=== PATIENT | female | born 1945 | race Hispanic/Latino ===

== ENCOUNTER 2018-04-05 09:10 | Emergency (ER) | payer OTHER ==
[2018-04-05 09:46] LABS: Absolute Lymphocytes (CBC) 1.7 K/uL (0.7-4.9); Absolute Monocytes 0.6 K/uL (0.1-1.3); Absolute Neutrophil 3.1 K/uL (1.8-8.0); Basophils % 0.9 % (0-1.3); Eosinophils % 3.3 % (0-4.4); Hematocrit 38.9 % (36.0-45.0); Lymphocytes % 30.7 % (15.3-44.8); MCH 31.7 pg (27.0-35.0); MPV 7.8 fL (7.6-11.3); Monocytes % 9.9 % (3.3-12.3); RBC Red Blood Cell Count 4.23 M/uL (3.86-4.86)
[2018-04-05 10:23] LABS: Potassium 4.2 mmol/L (3.5-5.1)
--- NOTE | 2018-04-05 11:14 | RAD REPORT ---
EXAM DESCRIPTION: Divya Single View04/05/2018 10:34 am CLINICAL HISTORY: Chest pain COMPARISON: 2010 FINDINGS: The lungs appear clear of acute infiltrate. The heart is normal size IMPRESSION: No acute abnormalities displayed
--- NOTE | 2018-04-05 12:13 | EKG ---
Test Date: 2018-04-05 Test Time: 09:20:54 Metaphysician: RAVINDRA MEASUREMENT RESULTS: Intervals: Rate: 63 IN: 166 QRSD: 146 QT: 438 QTc: 448 [place]: P: 61 IN: 166 QRS: -2 T: 89 INTERPRETIVE STATEMENTS: Normal sinus rhythm Left bundle branch block Abnormal ECG No previous ECG available for comparison Electronically Signed On 04-05-18 12:11:43 CDT by Gilles Gupta
--- NOTE | 2018-04-05 12:38 | ER ---
Nurse's Notes [facility] Name: Katelyn Stover Age: 72 yrs Sex: Female : 1945 Arrival Date: 04/05/2018 Time: 09:14 Bed 19 Private MD: Caryl Sanchez Diagnosis: Chest pain, unspecified Presentation: 04/05 09:21 Presenting complaint: Patient states: Left sided chest pain for 5 days with aj intermittent diaphoresis. Transition of care: patient was not received from another setting of care. Onset of symptoms was March 31, 2018. Risk Assessment: Do you want to hurt yourself or someone else? Patient reports no desire to harm self or others. Initial Sepsis Screen: Does the patient meet any 2 criteria? No. Patient's initial sepsis screen is negative. Does the patient have a suspected source of infection? No. Patient's initial sepsis screen is negative. Care prior to arrival: None. 09:21 Method Of Arrival: Wheelchair aj 09:21 Acuity: MICHELLE 3 aj Triage Assessment: :23 General: Appears in no apparent distress. comfortable, Behavior is calm, cooperative, aj appropriate for age. Pain: Complains of pain in anterior aspect of left upper chest and left breast. Neuro: Level of Consciousness is awake, alert, obeys commands, Oriented to person, place, time, situation, Appropriate for age. Cardiovascular: Reports chest pain, diaphoresis, Capillary refill < 3 seconds in bilateral fingers Patient's skin is warm and dry. Respiratory: Airway is patent Respiratory effort is even, unlabored, Respiratory pattern is regular, symmetrical. Derm: Skin is intact, is healthy with good turgor, Skin is pink, warm \T\ dry. normal. Historical: - Allergies: : No Known Allergies; aj - PMHx: 09: Hypertension; Hyperlipidemia; aj - PSHx: :23 Aneurysm repair; aj - Immunization history:: Adult Immunizations up to date. - Social history:: Smoking status: Patient/guardian denies using tobacco. - Ebola Screening: : Patient negative for fever greater than or equal to 101.5 degrees Fahrenheit, and additional compatible Ebola Virus Disease symptoms Patient denies exposure to infectious person Patient denies travel to an Ebola-affected area in the 21 days before illness onset No symptoms or risks identified at this time. - Family history:: not pertinent. - Hospitalizations: : No recent hospitalization is reported. Screenin:32 Abuse screen: Denies threats or abuse. Denies injuries from another. Nutritional ss screening: No deficits noted. Tuberculosis screening: Never had TB. Fall Risk None identified. Assessment: 09:32 General: Appears in no apparent distress. comfortable, Behavior is calm, cooperative, ss Denies fever, feeling ill, fatigue, chills. Pain: Complains of pain in left breast and anterior aspect of left upper chest Pain does not radiate. Pain currently is 3 out of 10 on a pain scale. Quality of pain is described as aching, Pain began 5 days ago, is episodic Aggravated by repositioning. Neuro: Level of Consciousness is awake, alert, obeys commands, Oriented to person, place, time, situation, Enrolled Agent are equal bilaterally. Cardiovascular: Heart tones S1 S2 present Capillary refill < 3 seconds is brisk in bilateral fingers Patient's skin is warm and dry. Pulses are palpable in right radial artery, right dorsalis pedis artery, left radial artery and left dorsalis pedis artery Edema is absent. Rhythm is sinus rhythm. Respiratory: Airway is patent Trachea midline Respiratory effort is even, unlabored, Respiratory pattern is regular, symmetrical, Breath sounds are clear bilaterally. Denies cough, shortness of breath labored breathing, pain with respiration, pain with cough, pain with movement. GI: Patient currently denies diarrhea, nausea, vomiting. : Denies burning with urination, inability to void, urinary frequency. EENT: Nares are clear Oral mucosa is moist. Throat is clear. Derm: Skin is intact, is healthy with good turgor, Skin is dry, Skin is pink, warm \T\ dry. normal. Musculoskeletal: Circulation, motion, and sensation intact. Capillary refill < 3 seconds, is brisk, in bilateral fingers. Range of motion: intact in all extremities, Swelling absent. 10:36 Reassessment: Patient and/or family updated on plan of care and expected duration. Pain mb3 level reassessed. Patient is alert, oriented x 3, equal unlabored respirations, skin warm/dry/pink. Vital Signs: 09:23 BP 161 / 87; Pulse 66; Resp 19; Pulse Ox 99% on R/A; Weight 64.41 kg; Height 5 ft. 1 aj in. (154.94 cm); 09:26 Temp 98.0(O); rb1 10:36 BP 154 / 73; Pulse 56; Resp 18; Pulse Ox 96% on R/A; mb3 12:44 BP 144 / 63; Pulse 58; Resp 17; Pulse Ox 97% on R/A; mb3 09:23 Body Mass Index 26.83 (64.41 kg, 154.94 cm) ED Course: 09:14 Patient arrived in ED. sb2 09:14 Caryl Sanchez MD is Private Physician. sb2 09:22 Vinicius Ramey MD is Attending Physician. rn 09:22 Triage completed. aj 09:23 Arm band placed on left wrist. Patient placed in an exam room, on a stretcher, on secured entrance monitor, on pulse oximetry. EKG completed in triage. Results shown to MD. 09:28 Yamel Plummer, RN is Primary Nurse. 09:28 Inserted saline lock: 20 gauge in right antecubital area, using aseptic technique. ss Blood collected. Patient maintains SpO2 saturation greater than 95% on room air. 09:32 Patient has correct armband on for positive identification. Bed in low position. ss secured entrance monitor on. Pulse ox on. NIBP on. 09:57 EKG done, by motion picture camera lens technician. reviewed by Vinicius Ramey MD. at1 10:35 XRAY Chest (1 view) In Process Unspecified. EDMS 12:06 EKG done, by motion picture camera lens technician. reviewed by Vinicius Ramey MD Repeat EKG. at1 12:37 Gilles Gupta MD is Referral Physician. rn 12:56 No provider procedures requiring assistance completed. IV discontinued, intact, mb3 bleeding controlled, No redness/swelling at site. Pressure dressing applied. Administered Medications: No medications were administered Outcome: 12:37 Discharge ordered by MD. rn 12:56 Discharged to home ambulatory, with family. mb3 12:56 Condition: stable 12:56 Discharge instructions given to patient, family, Instructed on discharge instructions, follow up and referral plans. Demonstrated understanding of instructions, follow-up care. 12:57 Patient left the ED. mb3 Signatures: Dispatcher [employer] EDMS Yaneth Quintero RN RN aj Nieto, Roman, MD MD rn Smirch, Shelby, RN RN ss Yaneth partida, power plant operators supervisor EKG Tat1 Cadence Guevara RN RN rb1 Octavia Cavazos sb2 Jeff Monroe, RN RN mb3
--- NOTE | 2018-04-05 12:38 | EDPHYS ---
Physician Documentation [facility] Name: Katelyn Stover Age: 72 yrs Sex: Female : 1945 Arrival Date: 04/05/2018 Time: 09:14 Bed 19 Private MD: Caryl Sanchez ED Physician Vinicius Ramey HPI: 04/05 10:25 This 72 yrs old Female presents to ER via Wheelchair with complaints of Chest rn Pain > 30 y/o. 10:25 The patient or guardian reports chest pain that is located primarily in the anterior rn chest wall, left. Onset: 5 day(s) ago. The pain. Associated signs and symptoms: Pertinent positives: diaphoresis, Pertinent negatives: dizziness, palpitations, shortness of breath, syncope, vomiting. The chest pain is described as aching. Duration: The patient or guardian reports multiple episodes, that are intermittent. Severity of pain: At its worst the pain was mild in the emergency department the pain has improved. The patient has not experienced similar symptoms in the past. Reports chest pain for 5 days, intermittent, left chest, some pain in back, no sob, no cough, reports worse with movement and trying to get up out of bed. Reports does a lot of yardwork, doesn't recall specific trauma. Pain lasts only as long as she moves body.. Historical: - Allergies: :23 No Known Allergies; aj - PMHx: 09:23 Hypertension; Hyperlipidemia; aj - PSHx: 09:23 Aneurysm repair; aj - Immunization history:: Adult Immunizations up to date. - Social history:: Smoking status: Patient/guardian denies using tobacco. - Ebola Screening: : Patient negative for fever greater than or equal to 101.5 degrees Fahrenheit, and additional compatible Ebola Virus Disease symptoms Patient denies exposure to infectious person Patient denies travel to an Ebola-affected area in the 21 days before illness onset No symptoms or risks identified at this time. - Family history:: not pertinent. - Hospitalizations: : No recent hospitalization is reported. ROS: 10:25 Constitutional: Negative for fever, chills, and weight loss, Eyes: Negative for injury, rn pain, redness, and discharge, Cardiovascular: Negative for palpitations, and edema, Respiratory: Negative for shortness of breath, cough, wheezing, and pleuritic chest pain, Abdomen/GI: Negative for abdominal pain, nausea, vomiting, diarrhea, and constipation, MS/Extremity: Negative for injury and deformity, Skin: Negative for injury, rash, and discoloration, Neuro: Negative for headache, weakness, numbness, tingling, and seizure. Exam: 10:25 Constitutional: This is a well developed, well nourished patient who is awake, alert, rn and in no acute distress. Head/Face: Normocephalic, atraumatic. Neck: Trachea midline, no thyromegaly or masses palpated, and no cervical lymphadenopathy. Supple, full range of motion without nuchal rigidity, or vertebral point tenderness. No Meningismus. Cardiovascular: Regular rate and rhythm with a normal S1 and S2. No gallops, murmurs, or rubs. Normal PMI, no JVD. No pulse deficits. Respiratory: Lungs have equal breath sounds bilaterally, clear to auscultation and percussion. No rales, rhonchi or wheezes noted. No increased work of breathing, no retractions or nasal flaring. Abdomen/GI: Soft, non-tender, with normal bowel sounds. No distension or tympany. No guarding or rebound. No evidence of tenderness throughout. Back: No spinal tenderness. No costovertebral tenderness. Full range of motion. Skin: Warm, dry with normal turgor. Normal color with no rashes, no lesions, and no evidence of cellulitis. MS/ Extremity: Pulses equal, no cyanosis. Neurovascular intact. Full, normal range of motion. Equal circumference. Neuro: Awake and alert, GCS 15, oriented to person, place, time, and situation. Cranial nerves II-XII grossly intact. Motor strength 5/5 in all extremities. Sensory grossly intact. Vital Signs: 09:23 BP 161 / 87; Pulse 66; Resp 19; Pulse Ox 99% on R/A; Weight 64.41 kg; Height 5 ft. 1 aj in. (154.94 cm); 09:26 Temp 98.0(O); rb1 10:36 BP 154 / 73; Pulse 56; Resp 18; Pulse Ox 96% on R/A; mb3 12:44 BP 144 / 63; Pulse 58; Resp 17; Pulse Ox 97% on R/A; mb3 09:23 Body Mass Index 26.83 (64.41 kg, 154.94 cm) aj MDM: 09:22 Patient medically screened. rn 11:16 ED course: Offered patient observation in hospital for cardiac w/u or r/o, patient does rn not want to stay, I convinced her to atleast let me repeat trop and if still negative can f/u with cardiology/pcp. . 12:36 Differential diagnosis: acute myocardial infarction, acute pericarditis, coronary rn artery disease chest wall pain, pleurisy, pneumothorax. The patient was not given aspirin in the Emergency Department. Patient reports taking aspirin within the past 24 hours. Data reviewed: vital signs, nurses notes, lab test result(s), EKG, radiologic studies, plain films. Counseling: I had a detailed discussion with the patient and/or guardian regarding: the historical points, exam findings, and any diagnostic results supporting the discharge/admit diagnosis, lab results, the need for outpatient follow up, to return to the emergency department if symptoms worsen or persist or if there are any questions or concerns that arise at home. Response to treatment: the patient's symptoms have mildly improved after treatment, and as a result, I will discharge patient. ED course: Pt without change in ECG or troponin, feels better, wants to go home and f/u with pcp and cardiology. . 13:03 ED course: Pt states had negative stress test 1 year ago. rn 04/05 09:31 Order name: Basic Metabolic Panel; Complete Time: 10:25 rn 04/05 09:31 Order name: CBC with Diff; Complete Time: 10:25 rn 04/05 09:31 Order name: NT PRO-BNP; Complete Time: 10:25 rn 04/05 09:31 Order name: Troponin (emerg Dept Use Only); Complete Time: 10:25 04/05 09:31 Order name: XRAY Chest (1 view); Complete Time: 11:16 rn 04/05 11:46 Order name: Troponin (emerg Dept Use Only); Complete Time: 12:35 rn 04/05 09:31 Order name: EKG; Complete Time: 09:31 rn 04/05 09:31 Order name: Cardiac monitoring; Complete Time: 09:35 rn 04/05 09:31 Order name: EKG - Nurse/Tech; Complete Time: 09:35 rn 04/05 09:31 Order name: IV Saline Lock; Complete Time: 09:36 04/05 09:31 Order name: Labs collected and sent; Complete Time: 09:36 rn 04/05 09:31 Order name: O2 Per Protocol; Complete Time: :36 rn 04/05 09:31 Order name: O2 Sat Monitoring; Complete Time: :36 rn 04/05 11:46 Order name: EKG; Complete Time: 11:47 rn 04/05 11:46 Order name: EKG - Nurse/Tech; Complete Time: 12:56 rn Administered Medications: No medications were administered Disposition: 04/05/18 12:37 Discharged to Home. Impression: Chest pain, unspecified. - Condition is Stable. - Discharge Instructions: Nonspecific Chest Pain. - Medication Reconciliation Form, Thank You Letter, Antibiotic Education, Prescription Opioid Use form. - Follow up: Gilles Gupta MD; When: As needed; Reason: Recheck today's complaints, Re-evaluation by your physician. - Problem is new. - Symptoms have improved. Signatures: Dispatcher [employer] EDMS Yaneth Quintero RN RN aj Nieto, Roman, MD MD rn Barnett, Mark, RN RN mb3 Corrections: (The following items were deleted from the chart) 10:28 10:25 Constitutional: This is a well developed, well nourished patient who is awake, rn alert, and in no acute distress. Head/Face: Normocephalic, atraumatic. Neck: Trachea midline, no thyromegaly or masses palpated, and no cervical lymphadenopathy. Supple, full range of motion without nuchal rigidity, or vertebral point tenderness. No Meningismus. Cardiovascular: Regular rate and rhythm with a normal S1 and S2. No gallops, murmurs, or rubs. Normal PMI, no JVD. No pulse deficits. Respiratory: Lungs have equal breath sounds bilaterally, clear to auscultation and percussion. No rales, rhonchi or wheezes noted. No increased work of breathing, no retractions or nasal flaring. Abdomen/GI: Soft, non-tender, with normal bowel sounds. No distension or tympany. No guarding or rebound. No evidence of tenderness throughout. MS/ Extremity: Pulses equal, no cyanosis. Neurovascular intact. Full, normal range of motion. Equal circumference. Neuro: Awake and alert, GCS 15, oriented to person, place, time, and situation. Cranial nerves II-XII grossly intact. Motor strength 5/5 in all extremities. Sensory grossly intact. rn 12:57 12:37 04/05/2018 12:37 Discharged to Home. Impression: Chest pain, unspecified. mb3 Condition is Stable. Forms are Medication Reconciliation Form, Thank You Letter, Antibiotic Education, Prescription Opioid Use. Follow up: Gilles Gupta; When: As needed; Reason: Recheck today's complaints, Re-evaluation by your physician. Problem is new. Symptoms have improved. rn
--- NOTE | 2018-04-05 17:58 | EKG ---
Test Date: 2018-04-05 Test Time: 11:55:11 Plumbing Manager: RAVINDRA MEASUREMENT RESULTS: Intervals: Rate: 55 [place]: 168 QRSD: 152 QT: 470 QTc: 449 [place]: P: 64 [place]: 168 QRS: -12 T: 74 INTERPRETIVE STATEMENTS: Sinus bradycardia Left bundle branch block Abnormal ECG Compared to ECG 04/05/2018 09:20:54 Sinus rhythm no longer present Electronically Signed On 04-05-18 17:56:46 CDT by Gilles Gupta
== END 2018-04-05 12:57 | disposition home or self-care (01) ==
LOC: ER 09:10
DX: R07.9 Chest pain, unspecified (principal); I10 Essential (primary) hypertension
CPT/HCPCS: 36415; 71045; 80048; 83880; 84484; 85025; 93005; 99285